=== PATIENT | female | born 1945 | race Caucasian/White ===

== ENCOUNTER 2022-08-27 06:26 | Observation (INO) ==
--- NOTE | 2022-08-07 12:51 | PAT Medication Instructions ---
Medication Instructions Date of Service August 07, 2022 Home Medications duloxetine 60 mg capsule,delayed release 60 mg PO QAM gabapentin 300 mg capsule 300 mg PO TID hydrocodone 10 mg-acetaminophen 325 mg tablet 1 tab PO Q6H PRN lorazepam 1 mg capsule,extended release 24 hr 1 mg PO TID metoprolol succinate 25 mg tablet,extended release 24 hr 25 mg PO QAM morphine 60 mg tablet,extended release 60 mg PO BID Take morning of surgery With a small sip of water, OTHERWISE NOTHING TO EAT OR DRINK AFTER MIDNIGHT: duloxetine 60 mg capsule,delayed release 60 mg PO QAM gabapentin 300 mg capsule 300 mg PO TID hydrocodone 10 mg-acetaminophen 325 mg tablet 1 tab PO Q6H PRN(if needed) lorazepam 1 mg capsule,extended release 24 hr 1 mg PO TID metoprolol succinate 25 mg tablet,extended release 24 hr 25 mg PO QAM morphine 60 mg tablet,extended release 60 mg PO BID Take evening before surgery gabapentin 300 mg capsule 300 mg PO TID hydrocodone 10 mg-acetaminophen 325 mg tablet 1 tab PO Q6H PRN(if needed) lorazepam 1 mg capsule,extended release 24 hr 1 mg PO TID morphine 60 mg tablet,extended release 60 mg PO BID Other Notes If you have any questions please call us at [phone] or [phone] or [phone] or [phone]
--- NOTE | 2022-08-15 10:35 | Anesthesiology Consultation ---
Date of Service August 15, 2022 Assessment & Plan (1) Encounter for pre-operative examination: - Outpatient joint assessment: Pt currently scheduled for inpatient pathway. If surgeon requests review for outpatient joint pathway, patient is not recommended candidate for outpatient joint program from anesthesia standpoint. - LUE limb restriction s/p lumpectomy - Anesthesia concern: Patient provided letter from [facility] (Dr. Yvan Rico- 06/15/20): "Regarding Radha's upcoming hip replacement, I would recommend using general anesthesia. Radha has diagnoses of both scoliosis and spinal stenosis." - COVID screening: Per assessment on 08/15: No known COVID-19 positive contacts or current COVID-19 related symptoms. Travel screen negative. Patient vaccinated. Patient Covid positive mid 05/2022 (home test)- cold symptoms, loss of taste > resolved. Covid test done at [facility] 08/15 came back negative. - Preop testing: patient unable to void at [facility]. Per [facility] tech, patient will bring to [facility] in near future- Awaiting UA report. - Awaiting surgeon-ordered PCP preop evaluation (Dr. Reid Granado/[place], already done per patient) - Patient indicates she has upcoming cardiology visit- Awaiting cardiology visit note (Dr. Vargas, appt 08/20). Chart Review Chart Review: Patient seen in Pre Admission Testing Teaching & Discussion Pre-Anesthesia Teaching/Discussion Notes: Instructed NPO after midnight before surgery,except medications with 15 cc of water. Medication instructions provided according to the [facility] guidelines. History Surgery Operation Date: 08/27/22 07:00 Proposed Procedures p Right Total Hip Arthroplasty - Cruz Kincaid MD Height/Weight Height: 5 ft 1 in Weight: 68.9 kg Allergies Allergy/AdvReac Type Severity Reaction Status Date / Time aspirin [From Percodan] AdvReac N/V Verified 08/12/22 15:02 linaclotide [From Linzess] AdvReac Abdominal Verified 08/12/22 15:02 Pain NSAIDS (Non-Steroidal AdvReac GI bleeding Verified 08/12/22 15:02 Anti-Inflamma oxycodone [From Percodan] AdvReac N/V Verified 08/12/22 15:02 METALS Allergy Pain, Uncoded 08/12/22 15:02 bruising, swelling at site Medications Home Medications Medication Instructions Recorded Confirmed Last Taken duloxetine 60 mg capsule,delayed 60 mg PO QAM 08/07/22 08/07/22 Unknown release gabapentin 300 mg capsule 300 mg PO TID 08/07/22 08/07/22 Unknown hydrocodone 10 mg-acetaminophen 1 tab PO Q6H PRN Pain 08/07/22 08/07/22 Unknown 325 mg tablet lorazepam 1 mg capsule,extended 1 mg PO TID 08/07/22 08/07/22 Unknown release 24 hr metoprolol succinate 25 mg 25 mg PO QAM 08/07/22 08/07/22 Unknown tablet,extended release 24 hr morphine 60 mg tablet,extended 60 mg PO BID 08/07/22 08/07/22 Unknown release Past Medical History Medical History Anxiety and depression History of COVID-19 Mid 05/2022 (home test)- cold symptoms, loss of taste > resolved Hx of breast cancer Dx 2020, s/p left breast lumpectomy Hypertension PPD positive, treated 1978 Scoliosis Spinal stenosis Exercise / Class Metabolic Activity II 4-5 Yardwork/Stairs/Walk up hill Past Surgical History Surgical History History of lumpectomy of left breast 2020 ("NEGATIVE LYMPH NODES") History of open reduction and internal fixation (ORIF) procedure LEFT CALCANEOUS FRACTURE REPAIR, RIGHT TIBIAL PLATEAU FRACTURE REPAIR History of revision of total replacement of right knee joint History of tonsillectomy and adenoidectomy History of total right knee replacement Hx of ankle fusion LEFT Hx of arthroscopy of right knee X4 Hx of biopsy DEEP MUSCLE BIOPSY Hx of cataract extraction RIGHT Hx of colonoscopy Hx of dilation and curettage Hx of finger joint replacement MIDDLE FINGER LEFT HAND + REVISION Hx of thumb surgery [facility] SURGERY S/P hardware removal ALL FRACTURE REPAIR HARDWARE REMOVED (DUE TO METAL ALLERGY) Scar tissue REMOVED FROM RIGHT THIGH Past Anesthesia History No Hx of Anesthesia Complications and No Family Hx of Anesthesia Complications History of PONV No Hx of PONV and No Hx of Motion Sickness Social History Smoking Status: Never smoker Do You Dip or Chew Tobacco: No Hx Alcohol Use: Yes Alcohol type: wine alcohol intake frequency: other Alcohol Intake Frequency Comment: ON THE WEEKENDS Hx Substance Use: Yes (MEDICAL CARD) substance use type: marijuana Last Used Substance Other:: "AFRAID TO USE IT, LAST USED IN 06/2022" Review of Systems Patient denies chest pain, shortness of breath, dyspnea on exertion, fever, chills, cough, wheezing, palpitations. Physical Exam Vital Signs VITALS BP 158/82 P 85 TEMP 98.8 SP02 97%RA RESP 16 PHYSICAL Decreased cervical extension range of motion. Full TMJ range of motion. TMD 3 finger breaths Mallampati Score 1 Dentition: missing side, + implant (molar), several crowns (molars) Lungs: clear throughout to auscultation Cardiac: regular rate and rhythm, no murmurs noted Spine: normal Carotid arteries: negative bruit Extremities: no LE edema Lab Results Anesthesia Preop Results Results Anesthesia Widget: WBC 6.81 K/ul (4.8-10.8) 08/15/22 Hgb 12.5 g/dl (12.0-16.0) 08/15/22 Hct 38.0 % (37.0-47.0) 08/15/22 Plt 271 K/uL (130-400) 08/15/22 Na 140 mmol/L (136-145) 08/15/22 K 4.5 mmol/L (3.5-5.1) 08/15/22 Cl 110 mmol/L (98-107) H 08/15/22 CO2 23 mmol/L (21-32) 08/15/22 BUN 22 mg/dl (6-23) 08/15/22 Creat 0.85 mg/dl (0.6-1.2) 08/15/22 Glucose Level 113 mg/dl (70-99(Fasting)) H 08/15/22 PT 10.6 Seconds (9.0-12.0) 08/15/22 PTT 24.7 Seconds (21.0-31.0) 08/15/22 INR 1.0 (0.9-1.1) 08/15/22 Blood Type A Positive 08/15/22 Antibody Screen NEGATIVE 08/15/22 Testing Electrocardiogram Date: 08/15/22 Possible limb lead reversal. NSR at 82bpm. Right superior axis deviation. Anterior infarct, age undetermined. Anteroseptal infarct noted on 12/22/18 EKG scanned into [facility]. Chest X-Ray Date: 08/15/22 FINDINGS: Cardiac silhouette is mildly enlarged. Mild right hemidiaphragmatic elevation. No pneumothorax, pleural effusion or overt pulmonary edema. Mild subsegmental bibasilar densities suggest atelectasis versus scarring. Degenerative changes of the shoulders and spine. IMPRESSION: No acute process. Echocardiogram Date: 01/10/19 LVEF 55 to 60%. Mild MR/TR/CT. Borderline pulmonary hypertension (estimated PASP 42 mmHg). Grade 1 diastolic dysfunction. Stress Test Date: 01/14/19 Type: nuclear Negative ECG response. Relatively low probability of CAD or ischemia. No significant ischemia. No significant infarct. The SPECT perfusion images are considered to be within normal limits. 76% MPHR. LVEF 71%
[~2022-08-27 06:26] MED LIST: LR 60ML/HR IV SCH; ROPIVACAINE 0.5% HCL/PF 150 MG, BUPIVACAINE 0.75% MPF 20 ML, EPINEPHrine 0.15 MG, dexAM... INFIL SCH; TRANEXAMIC ACID 1,000 MG **IV Pre-op IV SCH; ceFAZolin 2000MG 2,000 MG/15 ML SYR IV SCH
[2022-08-27] MEDS ORDERED: ROPIVACAINE 0.5% 5 MG/ML 30 ML VIAL ONE (06:41)
--- NOTE | 2022-08-27 06:44 | History & Physical Bridge Note ---
Date of Service August 27, 2022 History & Physical Bridge Note I have examined the patient, reviewed the History & Physical and in the interval since the performance of the History & Physical I have noted the following changes of clinical significance:consent obtained /site verified. no changes noted
[2022-08-27] MEDS ORDERED: ONDANSETRON INJ 2 MG/ML 2 ML VIAL ONE (08:10)
[2022-08-27] MEDS ORDERED: MIDAZOLAM HCL 1 MG/ML 2ML VIAL ONE (08:10)
[2022-08-27] MEDS ORDERED: LIDOCAINE 2% 2 ML VIAL/AMP(20MG/ML) INFIL ONE (08:10)
[2022-08-27] MEDS ORDERED: PROPOFOL IV EMULSION 10 MG/ML 20 ML VIAL IV ONE (08:10)
[2022-08-27] MEDS ORDERED: DEXAMETHASONE SOD INJ 4 MG/ML VIAL ONE (08:10)
[2022-08-27] MEDS ORDERED: fentaNYL citrate PF 100 MCG/2 ML VIAL ONE (08:11)
[2022-08-27] MEDS ORDERED: ORTHO JOINT ANESTHETIC ONE (08:42)
[2022-08-27] MEDS ORDERED: HYDROmorphone INJ 2 MG/ML SYR/VIAL ONE (09:18)
[2022-08-27] MEDS ORDERED: ONDANSETRON INJ 2 MG/ML 2 ML VIAL IV PRN ×2 (09:21→12:24)
[2022-08-27] MEDS ORDERED: ATROPINE SULFATE 0.1 MG/ML 10ML SYR IV PRN (09:21)
[2022-08-27] MEDS ORDERED: PROMETHAZINE HCL 6.25 MG in SODIUM CHLORIDE 0.9% 50 ML IV PRN (09:21)
[2022-08-27] MEDS ORDERED: VANCOMYCIN HCL 1000MG/20ML VIAL ONE (09:22)
[2022-08-27] MEDS ORDERED: GLYCOPYRROLATE 0.2 MG/ML VIAL ONE (10:31)
[2022-08-27] MEDS ORDERED: NEOSTIGMINE METHYLSULFATE 1 MG/ML 10ML VIAL ONE (10:31)
--- NOTE | 2022-08-27 10:34 | Post Operative Brief Note ---
Immediate Post Op Note v1 Date of Surgery August 27, 2022 Pre & Post Diagnosis Operation Date: 08/27/22 08:40 Pre-Op Diagnosis: Right Hip Degenerative Joint Desease Post-Op Diagnosis: Right Hip Degenerative Joint Desease I identified the patient and participated in the time-out.: Yes Procedure Operation Date: 08/27/22 08:40 Actual Procedures p Right Total Hip Arthroplasty(Right) - Cruz Kincaid MD Surgeon Cruz Kincaid MD Welder Pipe Making griffin/Sean Estimated Blood Loss 150 Findings Consistent with Post-Op Diagnosis Severe DJD Complications None
--- NOTE | 2022-08-27 10:37 | Operative Report ---
Post Operative Report Pre & Post Diagnosis Operation Date: 08/27/22 08:40 Pre-Op Diagnosis: Right Hip Degenerative Joint Desease Post-Op Diagnosis: Right Hip Degenerative Joint Desease I identified the patient and participated in the time-out.: Yes Procedure Operation Date: 08/27/22 08:40 Actual Procedures p Right Total Hip Arthroplasty(Right) - Cruz Kincaid MD Surgeon Cruz Kincaid MD Grocery Bagger griffin/Sean Estimated Blood Loss 150 Findings Consistent with Post-Op Diagnosis Situation patient is medically cleared as intractable hip pain she had a diagnostic injection which took away her pain for 2 weeks. This point time she is felt conservative management she has an extensive back history with chronic pain medication use. It was described in detail that this may not eliminate all of her discomfort. She states she understands. She understands risk and consequences including infection dislocation fracture DVT PE. Fluids See anesthesia report. Specimens Bone pathology. Drains None Complications None Indications Severe end-stage disease by x-ray with good response to diagnostic injection. Description of Procedure Procedure after the patient was probably notified site verify consent provide antibiotics from his been given the right lower extremity was prepped and draped in usual clean fashion with the patient in the left lateral decubitus position. A posterior approach to the hip was made. Blunt dissection carried down to the fascia this was incised under direct vision retractors placed care taken to practice sciatic nerve. There was exuberant soft tissue subcutaneously in the adipose L form. Short external rotators were released the capsule teed the hip dislocated the femoral neck resected it was a very vertical neck so the resection was kept at a minimum. Acetabular tract was then placed anteriorly and superiorly and then inferiorly and once the labrum was excised in a acetabular retractor placed excellent exposure was obtained and serial reaming carried up after all soft tissue was excised to approximately 48 mm and then the 48 mm cup was impacted into position and excellent position was obtained and good rim fit obtained. A 6.5x25 screw was placed with excellent purchase. Trial liner was then seated. The femur was then flexed internally rotated prepared with a drink box mechanic canal finder lateralizing rasp and serial broaching up to a size 2. Trial reduction was carried out +5 head and was very stable in all planes. All trial implants w ere then removed and the wound was irrigated with Betadine Pulsavac and then the whole limb interceded permanent liner seated permanent head and stem seated the hip reduced and was stable in all planes leg lengths are within normal quality. We will was irrigated 1 final time and then vancomycin powder placed the capsule closed with #2 Vicryl the short external rotators with the same the deep fascia with the same. The deep fat with the same. Superficial fat with 2-0 Vicryl and stainless steel clips for skin appropriate dressing was then applied the patient transferred recovery in satisfactory condition having tolerated the procedure well. I attest to the content of the Intraoperative Record and any orders documented therein. Any exceptions are noted below.
--- NOTE | 2022-08-27 10:41 | Operative Report ---
Post Operative Report Pre & Post Diagnosis Operation Date: 08/27/22 08:40 Pre-Op Diagnosis: Right Hip Degenerative Joint Desease Post-Op Diagnosis: Right Hip Degenerative Joint Desease I identified the patient and participated in the time-out.: Yes Procedure Operation Date: 08/27/22 08:40 Actual Procedures p Right Total Hip Arthroplasty(Right) - Cruz Kincaid MD Surgeon Cruz Kincaid MD Payroll Supervisor griffin/Sean Estimated Blood Loss 150 Findings Consistent with Post-Op Diagnosis Please note that the summary of implants is a size 48 acetabular shell sector cup with dome cover hole limiting her 25 from 6.5 screw 48x32 neutral liner 2 standard stem 32+5 head ceramic. All [email or web address] implants. Stem was a Tri-Lock Specimens Bone pathology Drains None Complications None Description of Procedure See other op note I attest to the content of the Intraoperative Record and any orders documented therein. Any exceptions are noted below.
--- NOTE | 2022-08-27 10:47 | Operative Report ---
Post Operative Report Pre & Post Diagnosis Operation Date: 08/27/22 08:40 Pre-Op Diagnosis: Right Hip Degenerative Joint Desease Post-Op Diagnosis: Right Hip Degenerative Joint Desease I identified the patient and participated in the time-out.: Yes Procedure Operation Date: 08/27/22 08:40 Actual Procedures p Right Total Hip Arthroplasty(Right) - Cruz Kincaid MD Surgeon HAL Kincaid MD C Python Developer griffin/Sean [place] Estimated Blood Loss 150 Findings Consistent with Post-Op Diagnosis see operative report Specimens see operative report Drains none Complications none Disposition Accompanied Patient To Recovery: Yes Indications This 77 year old female presented to the office with complaints of persisting right hip and groin pain. She had tried conservative care measures without improvement. She elected to proceed with surgical intervention after being educated about potential risks and outcomes. Preoperative imaging was obtained. Description of Procedure The patient was taken to the operating room where she was given general anesthesia. She was prepped and draped in the usual sterile fashion. Please see Dr. Kincaid's operative report for specifics of the procedure. I was present for the entire case from initial patient positioning through final wound closure. Assistance was provided in tissue retraction, hemostasis, trial implant placement, final implant placement, and final wound closure. The patient was taken to the recovery room in satisfactory condition. I attest to the content of the Intraoperative Record and any orders documented therein. Any exceptions are noted below.
[2022-08-27] MEDS: HYDROmorphone INJ 1 MG/ML SYRINGE IV PRN ×2 (10:52→10:59)
--- NOTE | 2022-08-27 10:52 | Orthopedic Progress Note ---
Date of Service August 27, 2022 Subjective Tolerated procedure right total hip replacement. Neurovascular check postop is normal. Denies chest pain shortness of breath fever chills nausea or vomiting. Physical Exam Physical Exam: Exam reveals intact femoral sciatic nerve function hip is located leg lengths within millimeters of the quality x-ray pending. Wound dressing clean dry and intact Results & Data Vital Signs (Past 12 Hours) Vital Signs Temp Pulse Resp BP Pulse Ox O2 Del Method 08/27/22 06:56 36.8 C 94 H 20 177/93 H 99 Room Air
--- NOTE | 2022-08-27 10:55 | Discharge Summary ---
Date of Service August 27, 2022 Admission HPI Per Admitting Provider Status post right total replacement noncemented. Admission Exam Per Admitting Provider Please see previous H&P. Principal Diagnosis Osteoarthritis right hip. Discharge Exam Exam reveals intact femoral sciatic nerve function hip is located leg lengths within millimeters of the quality x-ray pending. Wound dressing clean dry and intact Discharge Data Allergies Allergy/AdvReac Type Severity Reaction Status Date / Time aspirin [From Percodan] AdvReac N/V Verified 08/27/22 06:46 linaclotide [From Linzess] AdvReac Abdominal Verified 08/27/22 06:46 Pain NSAIDS (Non-Steroidal AdvReac GI bleeding Verified 08/27/22 06:46 Anti-Inflamma oxycodone [From Percodan] AdvReac N/V Verified 08/27/22 06:46 METALS Allergy Pain, Uncoded 08/12/22 15:02 bruising, swelling at site Vaccinations None Consultations None Procedures Performed Operation Date: 08/27/22 08:40 Actual Procedures p Right Total Hip Arthroplasty(Right) - Cruz Kincaid MD Hospital Course (1) Status post hip replacement: Total Time Total Time Spent Total Time Spent (In Minutes): 15 Discharge Plan Discharge Items Patient Disposition: Home - Self-Care Reason For Visit: Right Hip Degenerative Joint Desease Discharge Diagnosis: same Condition on Discharge: Good Activity: As commented below Bathing: Keep incision dry Sexual Activity: Wait until after follow-up appointment Excercise/Sports: Wait until after follow-up appointment Driving/Machine Use Comment: No driving x6 weeks. Weightbearing: Right weightbearing Weightbearing Comment: As tolerated. Non-emergency contact: Surgeon Call non-emergency contact if: your temperature is above 101.5, your wound has increased redness, your wound has increased drainage and your wound pain has increased Follow-Up/Referrals: Reid Granado MD [Primary Care Provider] - Diet: Resume previous diet Addtl Attending Provider Instructions: DIET: * Resume previous diet. MEDICATIONS: * Please take your prescriptions as instructed at your pre-op appointment and/or see medication discharge instructions listed above. * If concerns develop, call your physician's office at . SPECIAL CARE INSTRUCTIONS: * Ice/Elevate as instructed. * Keep dressing clean, dry, intact. * Your surgical extremity may be discolored due to prepping agents used on the skin. A bluish-green tint is a normal variant and should not cause alarm. Call your doctor at [phone] if: * Temperature above 101 degrees * Pain not relieved by pain medicine ordered * There is increased drainage or redness from any incision * You have any unanswered questions, problems or concerns. FOLLOW UP VISIT: * If not already scheduled, please call the office at to schedule a follow-up appointment. Pending Studies at Discharge: Yes (bone pathology) Studies:: bone pathology Stand-Alone Forms: [facility] Prescriptions: No Action hydrocodone-acetaminophen 10-325 mg Tablet 1 tab PO Q6H PRN (Reason: Pain) morphine 60 mg Tablet Extended Release 60 mg PO BID gabapentin 300 mg Capsule 300 mg PO TID metoprolol succinate 25 mg Tablet Extended Release 24 Hr 25 mg PO QAM duloxetine 60 mg Capsule,Delayed Release(Dr/Ec) 60 mg PO QAM lorazepam 1 mg Capsule,Extended Release 24hr 1 mg PO TID Discharge Orders: Discharge Order (Routine); Ordered 08/27/22 Ordered By: Cruz Kincaid Admission Data Attending Provider: Cruz Kincaid Primary Care Provider: Reid Granado
--- NOTE | 2022-08-27 11:10 | XRay Report ---
AP PELVIS History: Right total hip arthroplasty. Degenerative arthritis. Postop. FINDINGS: The patient is status post a right total hip arthroplasty. The hardware is intact. No fract ure or dislocation. Skin kirill are in place. IMPRESSION: Right total hip arthroplasty. No evidence for hardware complication ACT 112: Negative or not required by law. Electronically signed by: Ronaldo Katz M.D. 08/27/2022 11:09 AM
--- NOTE | 2022-08-27 12:02 | Anesthesiology Progress Note ---
Date of Service August 27, 2022 Anesthesia Post Procedure Vital Signs Vital Signs: Temp Pulse Pulse Resp BP Pulse Ox O2 Del Method 08/27/22 11:50 61 12 123/70 96 Nasal Cannula 08/27/22 11:40 67 14 116/69 96 Nasal Cannula 08/27/22 11:30 59 L 15 123/67 96 Nasal Cannula 08/27/22 11:20 36.4 C L 57 L 12 118/66 96 Nasal Cannula 08/27/22 11:10 60 15 125/67 96 Nasal Cannula 08/27/22 11:00 67 14 111/64 96 Nasal Cannula 08/27/22 10:50 64 12 117/66 97 Oxymask 08/27/22 10:44 36.5 C 102 H 15 118/66 99 Oxymask 08/27/22 06:56 36.8 C 94 H 20 177/93 H 99 Room Air O2 Flow Rate 08/27/22 11:50 3 08/27/22 11:40 3 08/27/22 11:30 3 08/27/22 11:20 3 08/27/22 11:10 3 08/27/22 11:00 3 08/27/22 10:50 6 08/27/22 10:44 6 08/27/22 06:56 Pain Intensity Right Hip: Pain Intensity: 8 Transfer of Care Handoff Completed per policy Notes Mental Status: alert / awake / arousable Patient Amnestic to Procedure: Yes Nausea / Vomiting: adequately controlled Pain: adequately controlled Airway Patency, RR, SpO2: stable & adequate BP & HR: stable & adequate Hydration State: stable & adequate Anesthetic Complications: no major complications apparent
[2022-08-27] MEDS ORDERED: HYDROmorphone INJ 0.5 MG/0.5 ML SYR IV PRN (12:24)
[2022-08-27] MEDS ORDERED: bisacodyL 10 MG SUPP PR PRN (12:24)
[2022-08-27] MEDS ORDERED: SODIUM CHLORIDE 0.9% 1000ML 1,000 ML IV SCH (12:24)
[2022-08-27] MEDS ORDERED: diphenhydrAMINE 50 MG/ML VIAL IV PRN (12:24)
[2022-08-27] MEDS ORDERED: MAGNESIUM HYDROXIDE SUSP 30 ML UDC PO PRN (12:24)
[2022-08-27] MEDS ORDERED: ALUMINUM/MAGNESIUM SUSP 30 ML UDC PO PRN (12:24)
[2022-08-27] MEDS ORDERED: NALOXONE HCL 0.4 MG/1 ML VIAL/CARP IV PRN (12:24)
[2022-08-27] MEDS ORDERED: METOCLOPRAMIDE HCL INJ 5 MG/ML 2 ML VIAL IV PRN (12:24)
[2022-08-27] MEDS: ACETAMINOPHEN 325 MG TAB PO SCH ×2 (13:34→18:04)
[2022-08-27] MEDS ORDERED: ORTHO WARFARIN NOMOGRAM SCH (14:00)
[2022-08-27] MEDS: LORazepam 1 MG TAB PO SCH ×2 (14:37→20:30)
[2022-08-27] MEDS: GABAPENTIN 300 MG CAP PO SCH ×2 (14:38→20:30)
[2022-08-27] MEDS ORDERED: WARFARIN SOD 5 MG TAB PO ONE (16:00)
--- NOTE | 2022-08-27 16:00 | Orthopedic Progress Note ---
Date of Service August 27, 2022 Assessment & Plan (1) Status post hip replacement: Plan: Doing well plan to get out of bed spoke with her nurse. She will be weightbearing as tolerated. Saline lock IV fluid. Admission and Anticipated Discharge Date Admission Date: August 27, 2022 Subjective Tolerated procedure right total hip replacement. Neurovascular check postop is normal. Denies chest pain shortness of breath fever chills nausea or vomiting. Afternoon rounds is comfortable with millimeter well medicated with Tylenol. Knee did not overmedicate based on her chronic narcotic use. Her vitals are stable and she is clearly not in escalating pain based on her pulse rate and her blood pressure. Physical Exam Physical Exam: Exam reveals intact femoral sciatic nerve function hip is located leg lengths within millimeters of the quality x-ray pending. Wound dressing clean dry and intact. Hip is located neurovascular check from acetic nerve is intact. Was able to put hip through 60 to 70 degrees of flexion with her abducted 20 degrees without any significant pain. She was advised that it is time for her to get out of bed. Results & Data Vital Signs (Past 12 Hours) Vital Signs Temp Pulse Pulse Resp BP Pulse Ox O2 Del Method 08/27/22 15:00 36.5 C 82 16 119/70 92 Room Air 08/27/22 14:22 36.5 C 82 17 120/69 92 Room Air 08/27/22 13:12 36.3 C L 74 16 119/69 92 Room Air 08/27/22 12:45 36.3 C L 70 18 111/68 90 Room Air 08/27/22 12:14 36.3 C L 69 16 126/68 95 Room Air 08/27/22 11:50 61 12 123/70 96 Nasal Cannula 08/27/22 11:40 67 14 116/69 96 Nasal Cannula 08/27/22 11:30 59 L 15 123/67 96 Nasal Cannula 08/27/22 11:20 36.4 C L 57 L 12 118/66 96 Nasal Cannula 08/27/22 11:10 60 15 125/67 96 Nasal Cannula 08/27/22 11:00 67 14 111/64 96 Nasal Cannula 08/27/22 10:50 64 12 117/66 97 Oxymask 08/27/22 10:44 36.5 C 102 H 15 118/66 99 Oxymask 08/27/22 06:56 36.8 C 94 H 20 177/93 H 99 Room Air O2 Flow Rate 08/27/22 15:00 08/27/22 14:22 08/27/22 13:12 08/27/22 12:45 08/27/22 12:14 08/27/22 11:50 3 08/27/22 11:40 3 08/27/22 11:30 3 08/27/22 11:20 3 08/27/22 11:10 3 08/27/22 11:00 3 08/27/22 10:50 6 08/27/22 10:44 6 08/27/22 06:56
[2022-08-27] MEDS: ASCORBIC ACID 500 MG TAB PO SCH (16:44)
[2022-08-27] MEDS: FERROUS GLUCONATE 324 MG TAB PO SCH (16:44)
[2022-08-27] MEDS: ceFAZolin 2000MG 2,000 MG/15 ML SYR IV SCH (16:50)
[2022-08-27] MEDS ORDERED: TRANEXAMIC ACID / 0.7% NACL 1,000 MG/100 ML BAG IV SCH (17:00)
[2022-08-27] MEDS: HYDROcodone/ACETAMINOPHEN 10/325 TAB PO PRN (18:04)
[2022-08-27] MEDS: MoRPHine SULFATE CR 60 MG TABCR PO SCH (20:30)
[2022-08-27] MEDS: DOCUSATE SODIUM 100 MG CAP PO SCH (20:30)
[2022-08-27] MEDS ORDERED: SENNA 8.6 MG TAB PO SCH (21:00)
[2022-08-28] MEDS: ACETAMINOPHEN 325 MG TAB PO SCH ×2 (00:14→05:11)
[2022-08-28] MEDS: ceFAZolin 2000MG 2,000 MG/15 ML SYR IV SCH (00:14)
[2022-08-28] MEDS: HYDROcodone/ACETAMINOPHEN 10/325 TAB PO PRN ×2 (00:17→07:29)
[2022-08-28 06:06] LABS: Hematocrit (blood only) 31.3 % (37.0-47.0); Hemoglobin 10.6 g/dl (12.0-16.0); Immature Granulocytes # (auto) 0.04 K/uL (0.01-0.20); Immature Granulocytes % (auto) 0.3 %; Lymphocytes # (auto) 1.15 K/uL (1.2-3.4); Lymphocytes % (auto) 9.8 %; Mean Corpuscular Hemoglobin 33.4 pg (25.0-34.0); Mean Corpuscular Hgb Conc 33.9 g/dL (32.0-36.0); Mean Corpuscular Volume 98.7 fL (80.0-100.0); Mean Platelet Volume 9.6 fL (9.4-12.4); Monocytes # (auto) 1.14 K/uL (0.11-0.59); Monocytes % (auto) 9.8 %; Neutrophils # (auto) 9.36 K/uL (1.40-6.50); Neutrophils % (auto) 80.1 %; Platelet Count 241 K/uL (130-400); RDW Coefficient of Variation 12.1 % (11.5-14.5); RDW Standard Deviation 44.5 fL (36.4-46.3); Red Blood Count 3.17 M/uL (4.20-5.40); White Blood Count 11.69 K/ul (4.8-10.8)
[2022-08-28 06:11] LABS: BUN Creatinine Ratio 19.8 (10-20); Creatinine Clr Calc Pharmacy 49.1 ml/min; Est GFR (African American) 76.1 ml/min; Est GFR (Non-African American) 65.6 ml/min; Potassium 4.6 mmol/L (3.5-5.1)
[2022-08-28 07:01] LABS: INR 1.2 (0.9-1.1)
--- NOTE | 2022-08-28 07:26 | Orthopedic Progress Note ---
Date of Service August 28, 2022 Assessment & Plan (1) Status post hip replacement: Plan: Doing well plan to get out of bed spoke with her nurse. She will be weightbearing as tolerated. Saline lock IV fluid. He is a bit unsure about her mobility however she has excellent leg control straight leg raising good hip flexion. Neurovascular check is within normal limits femoral sciatic nerve based on her baseline. Plan PT OT today. Dressing changed by PA. Start Eliquis after 10 AM today. Discontinue Coumadin. Case management to finalize plans. Admission and Anticipated Discharge Date Admission Date: August 27, 2022 Orthopedic Progress Note Denies chest pain shortness of breath fever chills nausea vomiting or headache. Vital signs are stable she is afebrile. Hematocrit is stable in the 30s. Wound dressing clean dry and intact. Femoral sciatic nerve functions excellent. She is unsure of her mobility. Based on her leg strength she should do well. She was advised of this. She states she has tough blood draws. She is requesting change to Eliquis. This was ordered. Start at 10 AM.
[2022-08-28] MEDS: DOCUSATE SODIUM 100 MG CAP PO SCH (07:28)
[2022-08-28] MEDS: ASCORBIC ACID 500 MG TAB PO SCH (07:28)
[2022-08-28] MEDS: FERROUS GLUCONATE 324 MG TAB PO SCH (07:28)
[2022-08-28] MEDS: GABAPENTIN 300 MG CAP PO SCH (07:29)
[2022-08-28] MEDS ORDERED: dexAMETHasone 10 MG in SYRINGE 0 ML IV SCH (08:00)
[2022-08-28] MEDS ORDERED: MULTIVITAMIN TAB PO SCH (09:00)
[2022-08-28] MEDS ORDERED: DULoxetine HCL 60 MG CAP PO SCH (09:00)
[2022-08-28] MEDS ORDERED: METOPROLOL SUCC 25MG EXT REL TAB PO SCH (09:00)
[2022-08-28] MEDS ORDERED: APIXABAN 2.5 MG TAB PO SCH (09:00)
[2022-08-28] MEDS: LORazepam 1 MG TAB PO SCH (09:09)
--- NOTE | 2022-08-28 09:10 | Orthopedic Progress Note ---
Date of Service August 28, 2022 Assessment & Plan (1) Status post hip replacement: Plan: The patient's dressing was changed today by me. She will leave this in place until Thursday. It can be changed at that point for soiling if needed. Use the walker for ambulation. She will start Eliquis 2.5 mg twice daily. Her first dose was this morning. Continue for 6 weeks. She already has pain medication at home for her chronic back pain. She may continue to use this as previously directed. [facility] home health has been established. Written discharge instructions have been provided. Follow-up in the office in 2 weeks as scheduled for staple removal on 09/11 at 11:30 Admission and Anticipated Discharge Date Admission Date: August 27, 2022 Subjective This 77-year-old female is seen today in her room. She is 1 day status post right total hip arthroplasty. She states she is doing well. She has very little discomfort. Her previous groin pain has resolved. She has already been out of bed and has worked with therapy. She feels ready to go home. Home health has already been arranged. She denies any chest pain, shortness of breath, nausea, vomiting, or abdominal pain. No numbness or tingling in her legs. No other complaints. Review of Systems Review of Systems: Unchanged from yesterday. Physical Exam Physical Exam: General: Well-developed, well-nourished, elderly female, in no acute distress. Sitting in a bedside chair. Alert and oriented. Skin: Warm and dry with good turgor. She has a postsurgical dressing in place on her right hip. Upon removal, there is scant dried blood on the inner dressings. No active bleeding. Gian are intact. Wound edges are well approximated. No erythema or warmth. No drainage. Musculoskeletal: The patient has supple motion of her right hip for flexion as well as rotation. She is able to stand easily from her bedside chair. She has already ambulated in the hallway. Motor function of the knee and ankle is intact. Neurologic: Gross sensation is intact across both lower extremities by soft touch. Results & Data Vital Signs (Past 12 Hours) Vital Signs Temp Pulse Resp BP Pulse Ox O2 Del Method 08/28/22 06:47 36.8 C 91 H 18 112/65 96 Room Air 08/28/22 03:00 36.9 C 99 H 18 119/72 95 Room Air 05/31/23 23:00 36.8 C 96 H 19 112/69 95 Room Air Laboratory Results CBC obtained this morning shows a white count of 11.69. H&H of 10.6 and 31.3. INR is 1.2. PRP is relatively unremarkable. Glucose at 119. Electrolytes and BUN/creatinine are otherwise unremarkable.
[2022-08-28] MEDS: MoRPHine SULFATE CR 60 MG TABCR PO SCH (09:48)
== END 2022-08-28 10:15 | disposition home health service (06) ==
LOC: 3E 06:26 → ASU 06:26